=== PATIENT | female | born 1950 | race Caucasian/White ===

== ENCOUNTER 2022-05-24 13:50 | Emergency (ER) | payer MEDICARE, BC, OTHER ==
[~2022-05-24 13:50] MED LIST: ALN70T PO; AZIT500T2 PO; CLON1TAB36 PO; CPR500T PO; CRS350T PO; CYCL10TA9 PO; CYCL5TAB11 PO; DIAZ10TA3 PO; DOXY-13 PO; FLUO20CA25 PO; HDR4T PO; HYDR2TAB51 PO; NF-ESOM40C PO; OXYC15TA21 PO; OXYC15TA73 PO; OXYC5CAP10 PO; PHEN200T16 PO; PHEN200T27 PO; ROPI3TAB PO; SNN187T PO; TRAZ150T42 PO; WRF1T PO; ZLP10T PO; ZLP5T
[2022-05-24 14:47] LABS: BASOPHILS # (AUTO) 0.1 10^3/uL (0.0-0.1); BASOPHILS % (AUTO) 1 % (0-10); EOSINOPHILS # (AUTO) 0.1 10^3/uL (0.0-0.3); EOSINOPHILS % (AUTO) 1 % (0-10); HEMATOCRIT 44 % (35-52); HEMOGLOBIN 14.7 g/dL (11.5-16.0); LYMPHOCYTES # (AUTO) 1.7 10^3/uL (1.0-4.0); LYMPHOCYTES % (AUTO) 19 % (12-44); MEAN CORPUSCULAR HEMOGLOBIN 31 pg (25-34); MEAN CORPUSCULAR HGB CONC 33 g/dL (32-36); MEAN CORPUSCULAR VOLUME 94 fL (80-99); MEAN PLATELET VOLUME 10.7 fL (9.0-12.2); MONOCYTES # (AUTO) 0.6 10^3/uL (0.0-1.0); MONOCYTES % (AUTO) 7 % (0-12); NEUTROPHILS # (AUTO) 6.4 10^3/uL (1.8-7.8); NEUTROPHILS % (AUTO) 72 % (42-75); PLATELET COUNT 298 10^3/uL (130-400)
[2022-05-24 14:50] LABS: ALBUMIN 4.2 GM/DL (3.2-4.5); POTASSIUM 4.3 MMOL/L (3.6-5.0)
[2022-05-24 14:52] LABS: CALCIUM 9.8 MG/DL (8.5-10.1)
[2022-05-24 14:53] LABS: TOTAL PROTEIN 7.3 GM/DL (6.4-8.2)
[2022-05-24 14:55] LABS: BILIRUBIN,TOTAL 0.4 MG/DL (0.1-1.0)
[2022-05-24 14:56] LABS: CREATININE SERUM 0.99 MG/DL (0.60-1.30)
[2022-05-24 14:58] LABS: BILIRUBIN,URINE NEGATIVE (NEGATIVE); CLARITY,URINE CLEAR; COLOR,URINE YELLOW; GLUCOSE, URINE (UA) NEGATIVE (NEGATIVE); KETONES,URINE NEGATIVE (NEGATIVE); LEUKOCYTE ESTERASE ,URINE NEGATIVE (NEGATIVE); NITRITE,URINE NEGATIVE (NEGATIVE); PH,URINE 5.5 (5-9); PROTEIN,URINE NEGATIVE (NEGATIVE)
[2022-05-24 15:10] LABS: BACTERIA,URINE TRACE /HPF
--- NOTE | 2022-05-24 15:22 | Diagnostic Imaging Report ---
INDICATION: Left rib pain after a fall. FINDINGS: There is a minimally displaced fracture of the left seventh rib posterolaterally. No other fractures are demonstrated. The lungs are well aerated and clear. No pneumothorax or pleural effusion. IMPRESSION: Minimally displaced left seventh rib fracture. Dictated by: Dictated on workstation # [id number]
--- NOTE | 2022-05-24 16:01 | ED Fall/Injury ---
General Chief Complaint: Trauma-Non Activation Stated Complaint: FALL Nursing Triage Note: PT TO [facility] BY EMS WITH C/O FALL, HIT HEAD TODAY, DENIES LOC. PT STATES SHE FELL A COUPLE OF DAYS AGO ALSO AND HAS HAD RIB PAIN SINCE THEN Source: patient Exam Limitations: no limitations History of Present Illness Date Seen by Provider: May 24, 2022 Time Seen by Provider: 16:02 Initial Comments To ER by EMS from home with reports of a fall. She did hit her head. She relates this to dizziness. She has left-sided rib pain. She gets dizzy quite frequently. Does not have a local doctor. She takes diazepam 10 mg twice a day and ran out of this yesterday. Occurred: just prior to arrival Severity: moderate Injuries/Pain Location: no injury Context: unknown Loss of Consciousness: no loss of consciousness Associated Symptoms (Fall): Denies Symptoms Allergies and Home Medications Allergies Coded Allergies: Shellfish *RETIRED-04/10/12 (Verified Allergy, Unknown, 04/25/08) morphine (Verified Allergy, Unknown, 04/25/08) Codeine (Unverified Allergy, 03/02/10) Patient Home Medication List Home Medication List Reviewed: Yes Alendronate Sodium (Fosamax) 70 Mg Tablet, 1 TAB PO ONCE A WEEK, (Reported) Entered as Reported by: JULIAN PHAN on 01/11/13 1214 Cyclobenzaprine Hcl (Cyclobenzaprine Hcl) 10 Mg Tablet, 10 MG PO BID, (Reported) Entered as Reported by: KANWAL MORAN on 02/16/10 0146 Diazepam (Diazepam 10 Mg) 10 Mg Tablet, 10 MG PO BID, (Reported) Entered as Reported by: KANWAL MORAN on 02/16/10 0129 Esomeprazole Mag Trihydrate (Nexium) 40 Mg Capsule.dr, 40 MG PO DAILY, (Reported) Entered as Reported by: JULIAN PHAN on 01/11/13 1211 Hydrocodone/Acetaminophen (Hydrocodone-Acetamin 5-325 mg) 5 Mg-325 Mg Tablet, 1 TAB PO Q8H PRN for PAIN-MODERATE (5-7) Prescribed by: EL TAMEZ on 05/24/22 1754 Naproxen (Naproxen) 250 Mg Tablet, 250 MG PO BID PRN for PAIN-MODERATE (5-7) Prescribed by: EL TAMEZ on 05/24/22 1754 Oxycodone Hcl (Roxicodone) 15 Mg Tablet, 15 MG PO BID, (Reported) Entered as Reported by: RAJANI JOHNSON on 10/17/11 1218 Phenazopyridine Hcl (Pyridium) 200 Mg Tablet, 1 EACH PO TID PRN, (Reported) Entered as Reported by: LINDA CONTRERAS on 01/14/13 1251 Zolpidem Tartrate (Ambien 10 Mg) 10 Mg Tab, 10 MG PO HS, (Reported) Entered as Reported by: JULIAN PHAN on 01/11/13 1211 Review of Systems Review of Systems Constitutional: see HPI Eyes: No Symptoms Reported Ears, Nose, Mouth, Throat: no symptoms reported Respiratory: no symptoms reported Cardiovascular: no symptoms reported Genitourinary: no symptoms reported Musculoskeletal: no symptoms reported Skin: no symptoms reported Psychiatric/Neurological: No Symptoms Reported Past Hatnrwe-Bnfatn-Bcmdur Hx Patient Social History Tobacco Use?: No Substance use?: No Alcohol Use?: No Pt feels they are or have been: No Immunizations Up To Date Influenza Vaccine Up-to-Date: No; Not Current Past Medical History Surgery/Hospitalization HX: HTN, HLD, ANXIETY, DEPRESSION, ARHTIRITS BACK SURGERY, KNEE, JANE, HYSTO, L SHOULDER Reproductive Disorders: No Physical Exam Vital Signs Vital Signs - First Documented 05/24/22 05/24/22 13:54 18:12 Temp 37.0 Pulse 91 Resp 16 B/P (MAP) 125/89 (101) Capillary Refill : Height, Weight, BMI Height: '" Weight: lbs. oz. kg; BMI Method:Stated General Appearance: WD/WN, no apparent distress HEENT: PERRL/EOMI, normal ENT inspection Neck: non-tender, full range of motion Respiratory: no respiratory distress, no accessory muscle use, other (Lateral chest wall tenderness to palpation) Gastrointestinal: normal bowel sounds, non tender, soft Extremities: normal range of motion, non-tender Neurologic/Psychiatric: alert, normal mood/affect, oriented x 3 Skin: normal color, warm/dry [place] Coma Score Best Eye Response: (4) Open Spontaneously Best Verbal Response: (5) Oriented Best Motor Response: (6) Obeys Commands [place] Total: 15 Progress/Results/Core Measures Results/Orders Lab Results Laboratory Tests Test 05/24/22 13:57 05/24/22 14:45 Range/Units White Blood Count 9.0 4.3-11.0 10^3/uL Red Blood Count 4.68 3.80-5.11 10^6/uL Hemoglobin 14.7 11.5-16.0 g/dL Hematocrit 44 35-52 % Mean Corpuscular Volume 94 80-99 fL Mean Corpuscular Hemoglobin 31 25-34 pg Mean Corpuscular Hemoglobin Concent 33 32-36 g/dL Red Cell Distribution Width 13.2 10.0-14.5 % Platelet Count 298 130-400 10^3/uL Mean Platelet Volume 10.7 9.0-12.2 fL Immature Granulocyte % (Auto) 0 % Neutrophils (%) (Auto) 72 42-75 % Lymphocytes (%) (Auto) 19 12-44 % Monocytes (%) (Auto) 7 0-12 % Eosinophils (%) (Auto) 1 0-10 % Basophils (%) (Auto) 1 0-10 % Neutrophils # (Auto) 6.4 1.8-7.8 10^3/uL Lymphocytes # (Auto) 1.7 1.0-4.0 10^3/uL Monocytes # (Auto) 0.6 0.0-1.0 10^3/uL Eosinophils # (Auto) 0.1 0.0-0.3 10^3/uL Basophils # (Auto) 0.1 0.0-0.1 10^3/uL Immature Granulocyte # (Auto) 0.0 0.0-0.1 10^3/uL Sodium Level 139 135-145 MMOL/L Potassium Level 4.3 3.6-5.0 MMOL/L Chloride Level 106 98-107 MMOL/L Carbon Dioxide Level 24 21-32 MMOL/L Anion Gap 9 5-14 MMOL/L Blood Urea Nitrogen 20 H 7-18 MG/DL Creatinine 0.99 0.60-1.30 MG/DL Estimat Glomerular Filtration Rate 60 BUN/Creatinine Ratio 20 Glucose Level 110 H 70-105 MG/DL Calcium Level 9.8 8.5-10.1 MG/DL Corrected Calcium 9.6 8.5-10.1 MG/DL Total Bilirubin 0.4 0.1-1.0 MG/DL Aspartate Amino Transf (AST/SGOT) 20 5-34 U/L Alanine Aminotransferase (ALT/SGPT) 17 0-55 U/L Alkaline Phosphatase 101 40-136 U/L Total Protein 7.3 6.4-8.2 GM/DL Albumin 4.2 3.2-4.5 GM/DL Urine Color YELLOW Urine Clarity CLEAR Urine pH 5.5 5-9 Urine Specific [place] 1.020 1.016-1.022 Urine Protein NEGATIVE NEGATIVE Urine Glucose (UA) NEGATIVE NEGATIVE Urine Ketones NEGATIVE NEGATIVE Urine Nitrite NEGATIVE NEGATIVE Urine Bilirubin NEGATIVE NEGATIVE Urine Urobilinogen 0.2 < = 1.0 MG/DL Urine Leukocyte Esterase NEGATIVE NEGATIVE Urine RBC (Auto) NEGATIVE NEGATIVE Urine RBC NONE /HPF Urine WBC NONE /HPF Urine Squamous Epithelial Cells 2-5 /HPF Urine Crystals NONE /LPF Urine Bacteria TRACE /HPF Urine Casts NONE /LPF Urine Mucus NEGATIVE /LPF Urine Culture Indicated NO My Orders Orders - EL TAMEZ APRN Cbc With Automated Diff (05/24/22 14:32) Ua Culture If Indicated (05/24/22 14:32) Comprehensive Metabolic Panel (05/24/22 14:32) Ribs/Unilateral With Chest (05/24/22 14:32) Ed Iv/Invasive Line Start (05/24/22 14:32) Diazepam Tablet (Valium Tablet) (05/24/22 14:45) Ct Head/Cervical Spine Wo (05/24/22 16:01) General/Regular (05/24/22 Lunch) Ketorolac Injection (Toradol Injection) (05/24/22 17:00) Tramadol Tablet (Ultram Tablet) (05/24/22 17:00) Medications Given in ED Current Medications Medications Dose Ordered Sig/Chel Route Start Time Stop Time Status Last Admin Dose Admin Diazepam 10 mg ONCE ONCE PO 05/24/22 14:45 05/24/22 14:46 DC 05/24/22 14:55 10 MG Ketorolac Tromethamine 15 mg ONCE ONCE IVP 05/24/22 17:00 05/24/22 17:01 DC 05/24/22 17:12 15 MG Tramadol HCl 50 mg ONCE ONCE PO 05/24/22 17:00 05/24/22 17:01 DC 05/24/22 17:12 50 MG Vital Signs/I&O 05/24/22 05/24/22 13:54 18:12 Temp 37.0 Pulse 91 84 Resp 16 16 B/P (MAP) 125/89 (101) 120/88 Blood Pressure Mean: 101 Departure Communication (Admissions) NAME: MIKI BATES [facility] REC#: [id number] PT STATUS: REG ER : 1950 PHYSICIAN: EL TAMEZ APRN ADMIT DATE: 05/24/22/ER Draft Date of Exam:05/24/22 CT HEAD/CERVICAL SPINE WO PROCEDURE: CT head and CT cervical spine without contrast. TECHNIQUE: Multiple contiguous axial images were obtained through the brain and cervical spine without the use of intravenous contrast. Sagittal and coronal reformations through the cervical spine were then performed. Auto Exposure Controls were utilized during the CT exam to meet ALARA standards for radiation dose reduction. DATE: May 24, 2022. COMPARISON: None. INDICATION: 72-year-old female, fall. Head and neck pain. FINDINGS: There is proportional prominence of the ventricles and additional CSF spaces consistent with mild cerebral volume loss. There is no mass effect or midline shift. There is no acute intracranial hemorrhage. There is no abnormal extra-axial fluid collection. The visualized portions of the paranasal sinuses, mastoid air cells and middle ears are well aerated. There is no identified facet joint subluxation or dislocation. There is multilevel advanced facet arthritis. There is a congenital or long-standing fusion at the level of the C2-C3 disc space and across both C2-C3 facet articulations. There is anterior cervical spinal fusion hardware spanning C5 through C7. There is moderate to severe disc height loss at C3-C4. There is mild disc height loss at C4-C5. There is severe disc height loss at C7-T1. There are endplate degenerative related changes. There is chondrocalcinosis. There is no asymmetric widening of the cervical disc spaces. There is grade 1 anterolisthesis of C4 and C5 measuring 2 mm. There is no identified acute fracture of the cervical spine. The visualized portions of the lungs are clear. There is a low-attenuation exophytic left thyroid nodule measuring up to 2.2 cm in size. There are additional smaller thyroid nodules bilaterally. There are bilateral carotid vascular calcifications. IMPRESSION: 1. No identified acute intracranial abnormality. 2. Mild cerebral volume loss. 3. No identified acute fracture of the cervical spine. 4. Multilevel advanced degenerative changes of the cervical spine and postoperative related changes of the cervical spine. Dictated on workstation # [id number] Dict: 05/24/22 1633 Trans: 05/24/22 1640 [facility] [id number] Interpreted by: JOSE ELIAS SMITH MD Electronically signed by: Impression Primary Impression: Rib fracture Disposition: HOME, SELF-CARE Condition: Stable Departure-Patient Inst. Decision time for Depature: 17:51 Referrals: PUMA MORRISSEY MD (PCP/Family) Primary Care Physician Patient Instructions: Rib Fracture (DC) Add. Discharge Instructions: Pain medication as directed. Return to ER for any concerns. Follow-up with your doctor next week. All discharge instructions reviewed with patient and/or family. Voiced understanding. Scripts Naproxen (Naproxen) 250 Mg Tablet 250 MG PO BID PRN for PAIN-MODERATE (5-7), #10 TAB Prov: EL TAMEZ MANAGER RN CASE 05/24/22 Hydrocodone/Acetaminophen (Hydrocodone-Acetamin 5-325 mg) 5 Mg-325 Mg Tablet 1 TAB PO Q8H PRN for PAIN-MODERATE (5-7), #10 TAB Prov: EL TAMEZ MANAGER RN CASE 05/24/22 EL TAMEZ MANAGER RN CASE May 24, 2022 16:01
--- NOTE | 2022-05-24 16:41 | Diagnostic Imaging Report ---
PROCEDURE: CT head and CT cervical spine without contrast. TECHNIQUE: Multiple contiguous axial images were obtained through the brain and cervical spine without the use of intravenous contrast. Sagittal and coronal reformations through the cervical spine were then performed. Auto Exposure Controls were utilized during the CT exam to meet ALARA standards for radiation dose reduction. DATE: May 24, 2022. COMPARISON: None. INDICATION: 72-year-old female, fall. Head and neck pain. FINDINGS: There is proportional prominence of the ventricles and additional CSF spaces consistent with mild cerebral volume loss. There is no mass effect or midline shift. There is no acute intracranial hemorrhage. There is no abnormal extra-axial fluid collection. The visualized portions of the paranasal sinuses, mastoid air cells and middle ears are well aerated. There is no identified facet joint subluxation or dislocation. There is multilevel advanced facet arthritis. There is a congenital or long-standing fusion at the level of the C2-C3 disc space and across both C2-C3 facet articulations. There is anterior cervical spinal fusion hardware spanning C5 through C7. There is moderate to severe disc height loss at C3-C4. There is mild disc height loss at C4-C5. There is severe disc height loss at C7-T1. There are endplate degenerative related changes. There is chondrocalcinosis. There is no asymmetric widening of the cervical disc spaces. There is grade 1 anterolisthesis of C4 and C5 measuring 2 mm. There is no identified acute fracture of the cervical spine. The visualized portions of the lungs are clear. There is a low-attenuation exophytic left thyroid nodule measuring up to 2.2 cm in size. There are additional smaller thyroid nodules bilaterally. There are bilateral carotid vascular calcifications. IMPRESSION: 1. No identified acute intracranial abnormality. 2. Mild cerebral volume loss. 3. No identified acute fracture of the cervical spine. 4. Multilevel advanced degenerative changes of the cervical spine and postoperative related changes of the cervical spine. Dictated by: Dictated on workstation # [id number]
[2022-05-24] MEDS ORDERED: KETOROLAC 30 MG/ML VIAL IVP ONE (17:00)
[2022-05-24] MEDS ORDERED: ACHD5005 PO (17:54)
[2022-05-24] MEDS ORDERED: NAPR-1088 PO (17:54)
[2022-05-24 18:12] VITALS: BP 120/88
== END 2022-05-24 18:12 ==
LOC: EDUNIT# 13:50 → ER 13:52
DX: S22.32XA Fracture of one rib, left side, initial encounter for closed fracture (principal); Z91.14 Patient's other noncompliance with medication regimen; W18.30XA Fall on same level, unspecified, initial encounter
CPT/HCPCS: 36415; 70450; 71101; 72125; 80053; 81000; 85025

== ENCOUNTER 2022-12-29 10:56 | Emergency (ER) | payer MEDICARE, BC, OTHER ==
[~2022-12-29] VITALS: Ht 154 cm; Wt 60.0 kg
[~2022-12-29 10:56] MED LIST changes: +ACHD5005 PO; +NAPR-1088 PO
[2022-12-29 11:42] VITALS: BP 166/76
--- NOTE | 2022-12-29 11:48 | ED Upper Extremity ---
General Chief Complaint: Upper Extremity Stated Complaint: INJ LEFT ARM Source: patient Exam Limitations: no limitations History of Present Illness Date Seen by Provider: Dec 29, 2022 Time Seen by Provider: 11:35 Initial Comments 72-year-old female presents the ER with complaints of left arm pain. She fell on 12/26 and was seen at the urgent care and diagnosed with a fracture. She was placed in a splint and given a arm sling at that time. She was also prescribed tramadol for the pain. She states she has been taking the tramadol and has not been helping. She is asking for a cast to be placed. Patient informed that we cannot place a cast in the ER, that she will have to see orthopedics to have a cast placed. She is also asking if she can get a prescription for [place] instead. Patient has an appointment with orthopedics on 12/31. Allergies and Home Medications Allergies Coded Allergies: Shellfish (Verified Allergy, Unknown, 04/25/08) codeine (Unverified Allergy, Unknown, 05/24/22) morphine (Verified Allergy, Unknown, 04/25/08) Patient Home Medication List Home Medication List Reviewed: Yes Alendronate Sodium (Fosamax) 70 Mg Tablet, 1 TAB PO ONCE A WEEK, (Reported) Entered as Reported by: JULIAN PHAN on 01/11/13 1214 Cyclobenzaprine Hcl (Cyclobenzaprine Hcl) 10 Mg Tablet, 10 MG PO BID, (Reported) Entered as Reported by: KANWAL MORAN on 02/16/10 0146 Diazepam (Diazepam 10 Mg) 10 Mg Tablet, 10 MG PO BID, (Reported) Entered as Reported by: KANWAL MORAN on 02/16/10 0129 Esomeprazole Mag Trihydrate (Nexium) 40 Mg Capsule.dr, 40 MG PO DAILY, (Reported) Entered as Reported by: JULIAN PHAN on 01/11/13 1211 Hydrocodone/Acetaminophen (Hydrocodone-Acetamin 5-325 mg) 5 Mg-325 Mg Tablet, 1 TAB PO Q8H PRN for PAIN-MODERATE (5-7) Prescribed by: EL TAMEZ on 05/24/221753 Naproxen (Naproxen) 250 Mg Tablet, 250 MG PO BID PRN for PAIN-MODERATE (5-7) Prescribed by: EL TAMEZ on 10/28/22 1754 Oxycodone Hcl (Roxicodone) 15 Mg Tablet, 15 MG PO BID, (Reported) Entered as Reported by: RAJANI JOHNSON on 10/17/11 1218 Phenazopyridine Hcl (Pyridium) 200 Mg Tablet, 1 EACH PO TID PRN, (Reported) Entered as Reported by: LINDA CONTRERAS on 01/14/13 1251 Zolpidem Tartrate (Ambien 10 Mg) 10 Mg Tab, 10 MG PO HS, (Reported) Entered as Reported by: JULIAN PHAN on 01/11/13 1211 Review of Systems Constitutional: no symptoms reported Musculoskeletal: other (Left arm pain) Past Tyktddv-Vjngtz-Iabash Hx Past Medical History Surgery/Hospitalization HX: HTN, HLD, ANXIETY, DEPRESSION, ARHTIRITS BACK SURGERY, KNEE, JANE, HYSTO, L SHOULDER Reproductive Disorders: No Physical Exam Vital Signs Capillary Refill : Height, Weight, BMI Height: '" Weight: lbs. oz. kg; BMI Method:Stated General Appearance: WD/WN, no apparent distress Neck: supple, normal inspection Cardiovascular: regular rate, rhythm Respiratory: lungs clear, normal breath sounds, no respiratory distress, no accessory muscle use Elbow/Forearm: Left (Currently in a splint) Hand: Left, soft tissue tenderness (Pain with palpation of fingers, sensation intact distally, cap refill less than 2 seconds, fingers are warm to touch), swelling Neurologic/Psychiatric: alert, normal mood/affect Skin: normal color, warm/dry Progress/Results/Core Measures Results/Orders My Orders Orders - JANIE STUART APRN Hydrocodone/Apap 10/325 Tablet (Lortab 1 (12/29/22 11:45) Medications Given in ED Current Medications Medications Dose Ordered Sig/Chel Route Start Time Stop Time Status Last Admin Dose Admin Acetaminophen/ Hydrocodone Bitart 1 ea ONCE ONCE PO 12/29/22 11:45 12/29/22 11:46 DC 12/29/22 11:50 1 EA Progress Progress Note : Progress Note Patient seen evaluated, resting in bed, no acute distress. Will order 1 dose of [place] here now and discharged with prescription for M[place]. Patient has an appointment with orthopedics this Friday. Patient instructed to keep the splint in place and to continue elevating it above the level of your heart is much as possible. Discharge instructions and return precautions provided. Departure Impression Primary Impression: Fracture Disposition: HOME, SELF-CARE Condition: Stable Departure-Patient Inst. Decision time for Depature: 12:01 Referrals: DARIO SHAVER MD (PCP/Family) Primary Care Physician Patient Instructions: Fracture (DC) Add. Discharge Instructions: Keep the splint in place until you see orthopedics on Friday. Follow-up with orthopedics as scheduled. Take [place] as needed for pain, it may make you sleepy, it can also cause constipation. You may also take 800 mg of ibuprofen every 8 hours with food to help with pain and swelling. Return for severe pain, numbness and tingling in her hand, or any other new, concerning, or worsening symptoms. All discharge instructions reviewed with patient and/or family. Voiced understanding. Scripts Hydrocodone/Acetaminophen (Hydrocodone-Acetamin 5-325 mg) 5 Mg-325 Mg Tablet 1 TAB PO Q4H PRN for PAIN-MODERATE (5-7), #20 TAB 0 Refills Prov: JANIE STUART APRN 12/29/22 JANIE STUART APRN Dec 29, 2022 11:48
[2022-12-29] MEDS ORDERED: ACHD5005 PO (12:04)
== END 2022-12-29 12:11 | disposition home or self-care (01) ==
LOC: EDUNIT# 10:56 → ER 10:59
DX: S42.302D Unspecified fracture of shaft of humerus, left arm, subsequent encounter for fracture with routine healing (principal); Z88.5 Allergy status to narcotic agent; W18.30XD Fall on same level, unspecified, subsequent encounter
CPT/HCPCS: 99283

== ENCOUNTER → 2022-12-31 | Outpatient (CLI) | payer MEDICARE, BC, OTHER | LOC: ORTHO 13:21 | PROVIDERS: ATTEND Orthopaedic Surgery | DX: S52.502A Unspecified fracture of the lower end of left radius, initial encounter for closed fracture (principal); X58.XXXA Exposure to other specified factors, initial encounter | CPT/HCPCS: 99203 ==

== ENCOUNTER 2023-01-14 21:21 | Emergency (ER) | payer BC, MEDICARE, OTHER ==
[2023-01-14 21:24] VITALS: BP 130/92
[2023-01-14] MEDS ORDERED: KETO10TA PO (21:35)
--- NOTE | 2023-01-14 21:36 | ED Upper Extremity ---
General Chief Complaint: Upper Extremity Stated Complaint: RAN OUT OF HYDROCODONE Source: patient Exam Limitations: no limitations History of Present Illness Date Seen by Provider: Jan 14, 2023 Time Seen by Provider: 21:22 Initial Comments 72-year-old female presents via EMS for left wrist and hand pain and "I ran out of hydrocodone." She states she broke about a week and a half ago. She ran out of hydrocodone 2 days ago. She had increased pain since that time. No new injuries. All other systems reviewed and negative except documented per HPI. Voice recognition software was used to help create this chart Allergies and Home Medications Allergies Coded Allergies: Shellfish (Verified Allergy, Unknown, 04/25/08) codeine (Unverified Allergy, Unknown, 05/24/22) morphine (Verified Allergy, Unknown, 04/25/08) Patient Home Medication List Home Medication List Reviewed: Yes Alendronate Sodium (Fosamax) 70 Mg Tablet, 1 TAB PO ONCE A WEEK, (Reported) Entered as Reported by: JULIAN PHAN on 01/11/13 1214 Cyclobenzaprine Hcl (Cyclobenzaprine Hcl) 10 Mg Tablet, 10 MG PO BID, (Reported) Entered as Reported by: KANWAL MORAN on 02/16/10 0146 Diazepam (Diazepam 10 Mg) 10 Mg Tablet, 10 MG PO BID, (Reported) Entered as Reported by: KANWAL MORAN on 02/16/10 0129 Esomeprazole Mag Trihydrate (Nexium) 40 Mg Capsule.dr, 40 MG PO DAILY, (Reported) Entered as Reported by: JULIAN PHAN on 01/11/13 1211 Hydrocodone/Acetaminophen (Hydrocodone-Acetamin 5-325 mg) 5 Mg-325 Mg Tablet, 1 TAB PO Q8H PRN for PAIN-MODERATE (5-7) Prescribed by: EL TAMEZ on 05/24/22 1754 Hydrocodone/Acetaminophen (Hydrocodone-Acetamin 5-325 mg) 5 Mg-325 Mg Tablet, 1 TAB PO Q4H PRN for PAIN-MODERATE (5-7) Prescribed by: Rachael Moody on 12/29/22 1205 Ketorolac Tromethamine (Ketorolac Tromethamine) 10 Mg Tablet, 10 MG PO TID Prescribed by: ALEJANDRA MEYER MD on 01/14/23 2135 Naproxen (Naproxen) 250 Mg Tablet, 250 MG PO BID PRN for PAIN-MODERATE (5-7) Prescribed by: EL TAMEZ on 05/24/22 1754 Oxycodone Hcl (Roxicodone) 15 Mg Tablet, 15 MG PO BID, (Reported) Entered as Reported by: RAJANI JOHNSON on 10/17/11 1218 Phenazopyridine Hcl (Pyridium) 200 Mg Tablet, 1 EACH PO TID PRN, (Reported) Entered as Reported by: LINDA CONTRERAS on 01/14/13 1251 Zolpidem Tartrate (Ambien 10 Mg) 10 Mg Tab, 10 MG PO HS, (Reported) Entered as Reported by: JULIAN PHAN on 01/11/13 1211 Review of Systems Constitutional: see HPI Past Dttazhf-Fayyhy-Aqfope Hx Patient Social History Tobacco Use?: No Use of E-Cig and/or Vaping dev: No Substance use?: No Alcohol Use?: No Past Medical History Surgery/Hospitalization HX: HTN, HLD, ANXIETY, DEPRESSION, ARHTIRITS BACK SURGERY, KNEE, JANE, HYSTO, L SHOULDER Reproductive Disorders: No Physical Exam Vital Signs Vital Signs - First Documented 01/14/23 21:24 Temp 36.6 Pulse 86 Resp 16 B/P (MAP) 130/92 (105) Pulse Ox 96 O2 Delivery Room Air Capillary Refill : Height, Weight, BMI Height: '" Weight: lbs. oz. kg; 25.00 BMI Method:Stated General Appearance: WD/WN, no apparent distress Cardiovascular: regular rate, rhythm, no murmur Respiratory: chest non-tender, lungs clear, normal breath sounds Elbow/Forearm: pain (Patient has a splint beside her home in bed. She has a sling in place. She appears to have tenderness to the dorsal aspect of the left wrist. There is no swelling bruising or deformity. Neurovascular motor and sensory intact.) Wrist: Yes pain (See above) Skin: normal color, warm/dry Progress/Results/Core Measures Results/Orders My Orders Orders - ALEJANDRA MEYER DO Ketorolac Injection (Toradol Injection) (01/14/23 21:45) Vital Signs/I&O 01/14/23 21:24 Temp 36.6 Pulse 86 Resp 16 B/P (MAP) 130/92 (105) Pulse Ox 96 O2 Delivery Room Air Departure Communication (Admissions) Patient is hemodynamically stable, neurovascular motor and sensory intact. She is specifically requesting refill hydrocodone. She has had no new injuries. No indication for repeat imaging. Advised Ortho follow-up and refill her hydrocodone but I will give her some Toradol short-term. She has no history of kidney. Issues. She is not diabetic. I think a short course of Toradol is likely safe. She will follow-up with Dr. Franz as scheduled in 4 days. Impression Primary Impression: Left wrist pain Disposition: HOME, SELF-CARE Condition: Stable Departure-Patient Inst. Referrals: DARIO SHAVER MD (PCP/Family) Primary Care Physician CHARI FRANZ MD Patient Instructions: Acute Pain, Adult Add. Discharge Instructions: Take Toradol as needed for pain. Increase your fluids at home and rest. Follow-up with Dr. Franz as previously scheduled All discharge instructions reviewed with patient and/or family. Voiced understanding. Scripts Ketorolac Tromethamine (Ketorolac Tromethamine) 10 Mg Tablet 10 MG PO TID for Pain for 3 Days, #9 TAB Prov: ALEJANDRA MEYER DO 01/14/23 ALEJANDRA MEYER DO Jan 14, 2023 21:36
[2023-01-14] MEDS ORDERED: KETOROLAC 15 MG/ML VIAL ONE (21:41)
[2023-01-14] MEDS ORDERED: KETOROLAC 15 MG/ML VIAL IM ONE (21:45)
== END 2023-01-14 22:38 | disposition home or self-care (01) ==
LOC: EDUNIT# 21:21 → ER 21:22
DX: M25.532 Pain in left wrist (principal); Z88.5 Allergy status to narcotic agent
CPT/HCPCS: 99284

== ENCOUNTER → 2023-01-16 | Outpatient (CLI) | payer MEDICARE, BC, OTHER ==
[~2023-01-16] MED LIST changes: +KETO10TA PO
--- NOTE | 2023-01-16 17:44 | Diagnostic Imaging Report ---
INDICATION: Fracture follow-up. AP, oblique, and lateral views of the left wrist are obtained. There are no previous studies available for comparison. There is a fracture of the distal radius which appears subacute in age with partial impaction and some sclerosis. There appears to be intra-articular extension. There is underlying degenerative change of the radiocarpal joint with chondrocalcinosis. There are degenerative changes of the 1st carpal metacarpal joint. IMPRESSION: Underlying degenerative change. Subacute fracture of distal radius with intra-articular extension, with signs of ongoing healing. There is no significant angulation. Dictated by: Dictated on workstation # [id number]
== END ==
LOC: ORTHO 13:51
PROVIDERS: ATTEND Orthopaedic Surgery
DX: S52.572D Other intraarticular fracture of lower end of left radius, subsequent encounter for closed fracture with routine healing (principal); M19.032 Primary osteoarthritis, left wrist; X58.XXXD Exposure to other specified factors, subsequent encounter
CPT/HCPCS: 73110; G0463; 99213